=== PATIENT | male | born 1990 | race Caucasian/White ===

== ENCOUNTER 2017-07-28 19:02 | Emergency (ER) | payer SELFPAY ==
[~2017-07-28] VITALS: Ht 180.3 cm; Wt 80.0 kg
[2017-07-28] MEDS ORDERED: FAMOTIDINE 20MG TABLET PO ONE (20:00)
[2017-07-28] MEDS ORDERED: METHYLPREDNISOLONE SOD SUCC 125 MG/2 ML VIAL IM ONE (20:00)
[2017-07-28] MEDS ORDERED: DIPHENHYDRAMINE 25MG CAPSULE PO ONE (20:00)
[2017-07-28 21:55] VITALS: BP 118/75
== END 2017-07-28 22:00 | disposition home or self-care (01) ==
LOC: ER 20:24
DX: T50.905A Adverse effect of unspecified drugs, medicaments and biological substances, initial encounter (principal); K21.9 Gastro-esophageal reflux disease without esophagitis; Y92.89 Other specified places as the place of occurrence of the external cause
CPT/HCPCS: 96372; 99283; J2930; Z7610; Q0163